=== PATIENT | female | born 1990 | race Caucasian/White ===

== ENCOUNTER 2016-10-02 10:15 | Outpatient (RCR) ==
--- NOTE | 2016-09-28 11:38 | RS.OPPTEV2 ---
Date of Note: 09/28/16 Visit #: 1 Date of Evaluation: 09/28/16 Payer Source: Medicaid Treatment Diagnosis: LBP, lumbar herniated disc History of Condition/Mechanism of Injury:: Patient reports having back pain for several years, since 2007. States pain has progressively gotten worse. Reports during and after the of her now three year old daughter, her pain has been much worse. Prior Level of Function.....Patient was independent with: ADL's, Self Care, Work /Vocation, Caregiving, Ambulation/Mobility, Community Integration/Access Functional Limitations: Sleep, ADL's, Reaching, Pushing, Pulling, Lifting, Carrying, Sitting, Standing, Bending, Ambulation Current Subjective/complaints:: Patient reports pain has progressed to the point that it is nearly constant in her low back. States she gets pain and tingling into the right leg when her back pain is elevated. States she also has bilateral hip pain, with more on the right . States she takes Ibuprofen, which takes the edge off. She has tried heat, ice, Icyhot, and has also tried some stretching that she learned from a family member who had therapy. 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 States she performs a lot of lifting, reaching, standing, walking, and bending. She tries to put one foot up at work when standing, to take some pressure off of her back. States her sleep is interrupted from pain most nights. She cannot tolerate any position for too long. States she has noticed some slight weakness in the right LE, mainly at the knee. Medical History Surgical History: Surgical History Comments:: left foot surgery Diagnostic Testing/Imaging:: Lumbar spine w/o contrast on 10/25/14: Summary: "Mild degenerative disc and facet changes with mild relative foraminal narrowing on the left L5-S1. " Hx Home Medications: Ambien, flexeril, Ritalin Patient's Goals: Her goal is to get some relief of back and LE pain. Pain Assessment - Pain Description Pain Location: low back, hips, right LE Current Pain Intensity: 3/10 Worst Pain Intensity: 8/10 Functional Outcome Measure Oswestry LBP: 50 - G Codes & Severity Modifier G Codes & Modifier: NA Source of G Code score: NA Observation - Observation Posture: Forward Head, Rounded Shoulders, Decreased Lumbar Lordosis Handedness: Right Gait - Gait Pattern General Gait Pattern Observation: No Deviations/Normal - ROM Lumbar Flexion: Hand reach to patellae (increased right LE pain) Sidebending to Left: Reach to Mid-thigh Sidebending to Right: Reach to Mid-thigh Lumbar Spine ROM Limitations: Pain Comments: Lumbar extension is WFL's without reports of increased pain. Bilateral LE AROM is WFL's. - Strength Trunk Lateral Flexion: 4 Good Trunk Rotation: 4 Good Comments: Right hip flexion 4/5 throughout. Right knee 4/5 Q & HS, Ankle 4+/5. Left hip 4+ to 5/5 throughout. Left knee and ankle 5/5. - Special Tests CLAUDIO Test: Negative Left, Negative Right SLR Test: Negative Left, Negative Right Seated Dural Stretch Test: Negative Left, Negative Right SI Joint Compression: Negative Palpation Comments:: Reports no tenderness with palpation throughout the paraspinals of the lumbar spine. Also reports no tenderness over either SI joint or into the gluteal muscles. Slight discomfort reported with central PA's along the lumbar spine, most at L3-L5 levels. Minimal muscle guarding along the lumbar paraspinals. Sensation - Sensation Right Lower Extremity: Intact/Normal Left Lower Extremity: Intact/Normal Additional Comments: Additional Comments: In supine, left LE is longer than the right. SLR on the left to 40-45 degrees, right to 35 degrees. Interventions - Exercise/Activities/Manual Therapy Exercises/Activities: Patient instructed in HS stretch and isometric hip flexion , both only on the right LE for now for HEP. Manual Therapy: NA HOME EXERCISE PROGRAM: HS stretch and isometric hip flexion, both only on the right LE - Charges Total Direct Minutes: 45 mins Total Treatment Time: 45 mins Procedures billed for this date of service:: EVAL LOW Assessment Assessment: Patient presents to therapy with a dignosis of low back pain with lumbar herniated disc. She reports back pain with prolonged walking or sitting. Sleep is interrupted from pain. States pain is and has been gradually worsening. She demonstrates limited lumbar ROM due to pain. Exhibits an imbalance in HS flexibility and LE strength. She will benefit from exercises to address flexibility and strength imbalances and progress to lumbar and pelvic stabilization to reduce her pain. She will also benefit from back safety education. Patient Education: Education of diagnosis, Body/Joint mechanics, Home Exercise Program, Home Safety, Activity Modification, Education of Plan of Care Rehab Potential: Good Short Term Goals Goal #1: Right SLR to 45 degrees. Goal to be met by: 10/12/16 Goal #2: Right hip flexion 4+/5. Goal to be met by: 10/12/16 Goal #3: Pt independent and compliant in basic HEP. Goal to be met by: 10/12/16 Goal #4: Right LE symptoms localized to low back. 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 HEP after D/C from therapy. Goal to be met by: 11/07/16 Goal #2: Score on Oswestry LBP improved to 26. Goal to be met by: 11/07/16 Goal #3: Pt able to perform work and home activities with minimal discomfort. Goal to be met by: 11/07/16 Goal #4: Pt to sleep 6 hours without interruption from back or LE pain. Goal to be met by: 11/07/16 Plan - Treatment to be Provided Procedures: Therapeutic Exercises, Therapeutic Activity, Manual Therapy, Patient Education Modalities: Electrical Stimulation, Ultrasound/Phonophoresis, Cryotherapy, Hot Packs - Treatment Plan Frequency: 3 X week Duration: 4 weeks ORDER # VISITS AND/OR THROUGH DATE: 11/07/16 - Treatment Code (1) Low back pain Qualifiers: Chronicity: unspecified Back pain laterality: unspecified Sciatica presence: unspecified whether sciatica present Qualified Description: Low back pain, unspecified back pain laterality, unspecified chronicity, with sciatica presence unspecified Qualifier Code(s): (M54.5) Low back pain (2) Lumbar herniated disc Comments: M51.26
--- NOTE | 2016-10-01 09:04 | RS.CXNS ---
Date of scheduled appointment: 10/01/16 Type: Cancel
--- NOTE | 2016-10-02 15:15 | RS.OPPTDN ---
Subjective Date of Note: 10/02/16 Visit #: 2 Date of Evaluation: 09/28/16 Payer Source: Medicaid Treatment Diagnosis: LBP, lumbar herniated disc Current Subjective/complaints:: Patient states she is not feeling very good today. States she is having pain in multiple places. Pain Assessment - Pain Description Pain Location: low back, hips, right LE Current Pain Intensity: 3/10 - Treatment Modality: Electrical Stim Unattended Parameters/Method Applied: 4 large pads set up to low back horizontally X 20 mins HVGS up to 140 peak volts. Patient Position: Supine - Heat/Cryotherapy Treatment: Hot Pack (with Estim) Interventions - Exercise/Activities/Manual Therapy Exercises/Activities: No exercises performed today. Advised to continue exercises of stretching HS and isometric hip flexion to the right LE. Manual Therapy: NA HOME EXERCISE PROGRAM: HS stretch and isometric hip flexion, both only on the right LE - Charges Total Direct Minutes: 5 mins Total Treatment Time: 25 mins Procedures billed for this date of service:: Hp, EStim Assessment: Patient tolerates Estim well. She will benefit from progress to exercises of stretching and stability to help decrease her pain. Patient demonstrates compliance with HEP?: Yes Short Term Goals Goal #1: Right SLR to 45 degrees. Goal to be met by: 10/12/16 Goal #2: Right hip flexion 4+/5. Goal to be met by: 10/12/16 Goal #3: Pt independent and compliant in basic HEP. Goal to be met by: 10/12/16 Goal #4: Right LE symptoms localized to low back. 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 HEP after D/C from therapy. Goal to be met by: 11/07/16 Goal #2: Score on Oswestry LBP improved to 26. Goal to be met by: 11/07/16 Goal #3: Pt able to perform work and home activities with minimal discomfort. Goal to be met by: 11/07/16 Goal #4: Pt to sleep 6 hours without interruption from back or LE pain. Goal to be met by: 11/07/16 Plan PLAN OF CARE EXPIRES ON:: 11/07/16 ORDER # VISITS AND/OR THROUGH DATE: 11/07/16 PLAN: Continue Plan of Care
--- NOTE | 2016-10-05 11:32 | RS.CXNS ---
Date of scheduled appointment: 10/05/16 Type: No Show
--- NOTE | 2016-10-07 10:07 | RS.CXNS ---
Date of scheduled appointment: 10/07/16 Type: No Show
[2016-10-08 15:24] VITALS: BMI 34.1
== END 2016-10-09 ==
PROVIDERS: ATTEND Physician Assistant
DX: M51.26 Other intervertebral disc displacement, lumbar region (principal)

== ENCOUNTER 2016-10-08 15:11 | Emergency (ER) ==
[2016-10-08 15:24] VITALS: BP 134/89; TEMP 98.6; BMI 34.1
[2016-10-08] MEDS ORDERED: SODIUM CHLORIDE 1,000 ML IV STA ×2 (15:55→18:50)
--- NOTE | 2016-10-08 15:55 | ED.PDOC ---
General ED Provider: Dr. ILYA CARTER JR Chief Complaint: Psychiatric Complaint Stated Complaint: rb-patient has been seeing mental health for approx. 1 month. states she had been harming herself and has had suicidal thoughts. patient is very tearful. states she has cut herself on her arms, neck, chest and abd. patient has a hard time breathing with her panic attacks. states she thinks about killing herself but does not have a plan. states she doesn't feel like she benefits anyone so what does it matter if she is here. states cuts are burning.patient very tearful and crying. patient has multiple superficial laceration to bilateral forearms and chest and abd., patient states she used a multi-tool to do it.[ End ]98.6 147 20 98% 134/89 01/18. Both shifts of mental health here; Cynthia kate, and Gosia Time Seen by Physician: 15:55 Mode of Arrival: Walk-In Information Source: Patient Exam Limitations: No limitations Primary Care Provider: SHIRLEY MENDOZA Nursing and Triage Documentation Reviewed and Agree: No Review of Systems - Review Of Systems Constitutional: Reports: Malaise Eyes: Reports: No symptoms Ears, Nose, Mouth, Throat: Reports: No symptoms Respiratory: Reports: No symptoms, Short of air (hyperventilatiing) Cardiac: Reports: No symptoms, Chest pain (from abrasions, anxious palpitations) GI: Reports: No symptoms, Abdominal pain (from abrasions) : Reports: No symptoms Musculoskeletal: Reports: No symptoms Skin: Reports: Lesions Neurological: Reports: Anxiety, Depressed, Emotional problems Endocrine: Reports: No symptoms Hematologic/Lymphatic: Reports: No symptoms All Other Systems: Other Past Medical History - Past Medical History Endocrine: Reports: None Cardiovascular: Reports: None Respiratory: Reports: None Hematological: Reports: None Gastrointestinal: Reports: None Genitourinary: Reports: None Neuro/Psych: Reports: Anxiety, Depression, Bipolar Disorder, Other (suicide attempt, ADD) Musculoskeletal: Reports: None Cancer: Reports: None Last Menstrual Period: 3 days ago - Surgical History General Surgical History: Reports: , Orthopedic (left foot surgery ), Other (d and c exploratory lap ) - Family History Family History: Reports: Unknown - Social History Smoking Status: Current some day smoker, Light tobacco smoker, Vaping Hx Substance Use: No Alcohol Screening: Occasionally Physical Exam - Physical Exam Appearance: Well-appearing Pain Distress: Moderate Eyes: NOHELIA, EOMI, Conjunctiva clear ENT: Ears normal, Nose normal, Oropharynx normal Neck: Supple Respiratory: Airway patent, Breath sounds clear, Breath sounds equal, Respirations nonlabored Cardiovascular: RRR, Pulses normal, No rub, No murmur, Tachycardia GI/: Soft, No masses, Bowel sounds normal, No Organomegaly, Tender (due to multiple abrasions) Musculoskeletal: Normal strength, ROM intact, No edema, No calf tenderness Skin: Warm, Dry, Normal color (abrasuions both forearms upper chest abdomen all tender no evidence of infection) Neurological: Sensation intact, Motor intact, Reflexes intact, Cranial nerves intact, Alert Psychiatric: Anxious, Depressed Interpretation - Radiology Interpretation Radiology Interpretation By: Radiologist Radiology Results: Negative Exam Interpreted: CXR - EKG Interpretation Time of EKG #1: 16:15 Rate: Tachy Rhythm: Sinus (159) ST Segment: Other Critical Care Note - Critical Care Note Total Time (mins): 30 Course - Course Hematology/Chemistry: 10/08/16 16:09 10/08/16 16:09 Orders, Labs, Meds: Lab Review 10/08/16 10/08/16 16:09 16:22 WBC 10.27 H RBC 4.52 Hgb 13.0 Hct 38.1 MCV 84.3 MCH 28.8 MCHC 34.1 RDW Coeff of Kelechi 13.3 Plt Count 316 Immature Gran % (Auto) 0.3 Neut % (Auto) 67.7 Lymph % (Auto) 19.5 Mcintosh % (Auto) 10.2 H Eos % (Auto) 1.9 Baso % (Auto) 0.4 Immature Gran # (Auto) 0.0 Neut # 7.0 H Lymph # 2.0 Mcintosh # 1.1 Eos # 0.2 Baso # 0.0 D-Dimer (Manual) 418.94 Sodium 140 Potassium 3.7 Chloride 108 H Carbon Dioxide 24 Anion Gap 11.7 BUN 9 Creatinine 0.73 Estimated GFR (MDRD) 96.00 BUN/Creatinine Ratio 12.32 Glucose 103 Calcium 9.7 Total Bilirubin 0.21 AST 17 ALT 13 Alkaline Phosphatase 101 H Total Protein 7.9 Albumin 4.1 Globulin 3.8 Albumin/Globulin Ratio 1.08 TSH 1.204 Urine Color Yellow Urine Clarity Cloudy Urine pH 5.5 Ur Specific [place] 1.025 Urine Protein Negative Urine Glucose (UA) Negative Urine Ketones Negative Urine Blood Trace-lysed Urine Nitrite Negative Urine Bilirubin Negative Urine Urobilinogen 0.2 Ur Leukocyte Esterase 1+ Urine Microscopic RBC 2-5 Urine Microscopic WBC 10-20 Ur Squamous Epith Cells 2-5 Amorphous Sediment Trace Urine Bacteria 1+ Urine Mucus 1+ Urine Test Negative Salicylate Level mg/dL < 5.0 Urine Opiates Screen Negative Ur Oxycodone Screen Negative Urine Methadone Screen Negative Ur Propoxyphene Screen Negative Acetaminophen < 3 L Ur Barbiturates Screen Negative U Tricyclic Antidepress Negative Ur Phencyclidine Scrn Negative Ur Amphetamine Screen Negative U Methamphetamines Scrn Negative U Benzodiazepines Scrn Positive Urine Cocaine Screen Negative U Cannabinoids Screen Negative Plasma/Serum Alcohol < 10.0 Orders Category Date Time Status EKG-(ED ONLY) Stat CARDIO 10/08/16 15:55 Completed EKG-(ED ONLY) Stat CARDIO 10/08/16 18:45 Completed TRANSFER TO OUTSIDE FACILITY .TO OTHER OUTSIDE FACILITY CARE 10/08/16 21:42 Active (SEE ORDER DETAILS) WRITE TRANSFER/SBAR NOTE ONCE CARE 10/08/16 21:42 Active DISCHARGE ASSESSMENT ONCE DISCHARGE 10/08/16 21:42 Active WRITE DISCHARGE NOTE ONCE DISCHARGE 10/08/16 21:42 Active Consult Mental Health [ED MENTAL HEALTH CONSULT] .ONCE EMERGENCY 10/08/16 16: 08 Active 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 ONCE EMERGENCY 10/08/16 15:55 Active ED IV/MEDIPORT/POWERPORT .ONCE EMERGENCY 10/08/16 15:55 Inactive IV [ED IV/MEDIPORT/POWERPORT] .ONCE EMERGENCY 10/08/16 18:30 Active ACETAMINOPHEN Stat LAB 10/08/16 16:09 Completed BLOOD ALCOHOL Stat LAB 10/08/16 16:09 Completed CBC W/ AUTO DIFF Stat LAB 10/08/16 16:09 Completed COMPREHENSIVE METABOLIC PANEL Stat LAB 10/08/16 16:09 Completed D-DIMER Stat LAB 10/08/16 16:09 Completed DRUG SCREEN, URINE, RAPID Stat LAB 10/08/16 16:22 Completed TEST URINE [URINE ] Stat LAB 10/08/16 16:22 Completed SALICYLATE Stat LAB 10/08/16 16:09 Completed THYROID STIMULATING HORMONE Stat LAB 10/08/16 16:09 Completed URINALYSIS C & S IF INDICATED Stat LAB 10/08/16 16:22 Completed URINE CULTURE Stat LAB 10/08/16 16:40 Completed 0.9 % Sodium Chloride [Saline Flush] MEDS 10/08/16 15:55 Discontinued 1 syr IVF PRN PRN 0.9 % Sodium Chloride [Saline Flush] MEDS 10/08/16 18:30 Discontinued 1 syr IVF PRN PRN Bacitracin/Polymyxin B Sulfate [Polysporin 0.9 gm MEDS 10/08/16 18:45 Discontinued Packet] 1 each TP ONCE STA Clonazepam [Klonopin] MEDS 10/08/16 17:15 Discontinued 0.5 mg PO ONCE STA Lorazepam Inj [Ativan] MEDS 10/08/16 18:47 Discontinued 1 mg IVP ONCE STA Lorazepam Inj [Ativan] MEDS 10/08/16 20:26 Discontinued 2 mg IVP ONCE STA Nitrofurantoin Monohyd/M-Cryst [Macrobid] MEDS 10/08/16 16:54 Discontinued 100 mg PO ONCE STA Sodium Chloride 0.9% [Sodium Chloride] 1,000 ml MEDS 10/08/16 18:50 Discontinued IV BOLUS CHEST, 2 VIEWS PA & LAT Stat RADS 10/08/16 16:09 Completed Medications Discontinued Medications Generic Name Dose Route Start Last Admin Trade Name Freq PRN Reason Stop Dose Admin Bacitracin/Polymyxin B Sulfate 1 each 10/08/16 18:45 10/08/16 18:59 Polysporin 0.9 Gm Packet TP 10/08/16 18:46 1 each ONCE STA Administration Clonazepam 0.5 mg 10/08/16 17:15 10/08/16 17:26 Klonopin PO 10/08/16 17:16 0.5 mg ONCE STA Administration Sodium Chloride 1,000 mls @ 1,000 mls/hr 10/08/16 18:50 10/08/16 18:59 Sodium Chloride IV 10/08/16 19:49 1,000 mls/hr BOLUS STA Administration Lorazepam 1 mg 10/08/16 18:47 10/08/16 18:55 Ativan IVP 10/08/16 18:48 1 mg ONCE STA Administration Lorazepam 2 mg 10/08/16 20:26 10/08/16 20:34 Ativan IVP 10/08/16 20:27 2 mg ONCE STA Administration Nitrofurantoin Macrocrystals 100 mg 10/08/16 16:54 03/30/17 17:26 Macrobid PO 10/08/16 16:55 100 mg ONCE STA Administration Sodium Chloride 1 syr 10/08/16 15:55 10/08/16 20:39 Saline Flush IVF 1 syr PRN PRN Administration To flush IV Sodium Chloride 1 syr 10/08/16 18:30 Saline Flush IVF PRN PRN To flush IV Vital Signs: Temp Pulse Resp BP Pulse Ox 10/08/16 15:17 98.6 F 147 H 20 134/89 98 Departure - Departure Time of Disposition: 21:55 Disposition: TSF TO PSYCH HOSP/UNIT Discharge Problem: Anxiety, Suicidal ideation Instructions: Suicide Prevention for Adults (ED) Condition: Stable Pt referred to PMD for follow-up: No (psych) Allergies/Adverse Reactions: Allergies No Known Allergies Allergy (Unverified 10/08/16 15:24) Home Medications: Ambulatory Orders Methylphenidate HCl [Ritalin] 10 mg PO TID PRN 10/08/16 Zolpidem Tartrate [Ambien] 10 mg PO BEDTIME 10/08/16
[2016-10-08 16:14] LABS: BASOPHILS % (AUTO) 0.4 % (0.0-3.0); EOSINOPHILS # (AUTO) 0.2 K/ul (0.0-0.7); EOSINOPHILS % (AUTO) 1.9 % (0.0-7.0); HEMATOCRIT 38.1 % (37.0-47.0); IMMATURE GRANULOCYTE % (AUTO) 0.3 % (0.0-5.0); LYMPHOCYTES % (AUTO) 19.5 (10.0-50.0); MEAN CORPUSCULAR HEMOGLOBIN 28.8 pg (27.0-31.0); MEAN CORPUSCULAR HGB CONC 34.1 (31.8-35.4); MEAN CORPUSCULAR VOLUME 84.3 fl (81.0-99.0); MONOCYTES # (AUTO) 1.1 K/uL (0.4-2.0); MONOCYTES % (AUTO) 10.2 (0-10); NEUTROPHILS % (AUTO) 67.7; PLATELET COUNT 316 10^3/uL (140-440); RED BLOOD COUNT 4.52 10^6/ul (4.20-5.40); WHITE BLOOD COUNT 10.27 K/ul (4.6-10.2)
[2016-10-08 16:35] LABS: BILIRUBIN,URINE Negative (NEGATIVE); KETONES,URINE Negative (NEGATIVE); LEUKOCYTE ESTERASE ,URINE 1+ (NEGATIVE); NITRITE,URINE Negative (NEGATIVE); PH,URINE 5.5 (5-9); PROTEIN,URINE Negative (NEGATIVE); URINE, BLOOD Trace-lysed (NEGATIVE)
[2016-10-08 16:36] LABS: URINE PREGNANCY INTERNAL QC INTERNAL QC VALID
[2016-10-08 16:39] LABS: ADD URINE MICROSCOPIC YES
[2016-10-08 16:40] LABS: BACTERIA,URINE 1+ (NOT PRESENT)
[2016-10-08 16:44] LABS: COCAIN SCREEN,URINE NEGATIVE (NEGATIVE)
[2016-10-08] MEDS ORDERED: MACROBID PO STA (16:54)
[2016-10-08 16:59] LABS: ACETAMINOPHEN < 3 ug/ml (10-30); ALANINE AMINOTRANSFERASE 13 U/L (12-78); ALBUMIN 4.1 g/dL (3.4-5.0); ALBUMIN/GLOBULIN RATIO 1.08; ALKALINE PHOSPHATASE 101 U/L (42-98); ANION GAP 11.7; ASPARTATE AMINO TRANSFERASE 17 U/L (15-37); BILIRUBIN,TOTAL 0.21 mg/dL (0.00-1.20); BLOOD UREA NITROGEN 9 mg/dL (7-18); BUN/CREATININE RATIO 12.32; CALCIUM 9.7 mg/dL (8.2-10.2); CARBON DIOXIDE 24 mmol/L (21-32); CHLORIDE 108 mmol/L (98-107); CREATININE 0.73 mg/dL (0.60-1.30); GLUCOSE 103 mg/dL (70-110); POTASSIUM 3.7 mmol/L (3.5-5.10); SALICYLATE < 5.0 mg/dL (2.8-20.0); SODIUM 140 mmol/L (136-145); TOTAL PROTEIN 7.9 g/dL (6.4-8.2)
--- NOTE | 2016-10-08 16:59 | DI ---
Examination: Two radiographic images of the chest. Comparison: None available. Reason for study: Short of air. FINDINGS: No pneumothorax, pleural effusion, or focal consolidation. The cardiac silhouette is not enlarged. The imaged osseous structures are atraumatic. Impression: No acute cardiopulmonary findings.
[2016-10-08] MEDS ORDERED: KLONOPIN PO STA (17:15)
[2016-10-08] MEDS ORDERED: POLYSPORIN 0.9 GM PACKET TP STA (18:45)
[2016-10-08] MEDS ORDERED: ATIVAN IVP STA ×2 (18:47→20:26)
== END 2016-10-08 21:55 ==
LOC: ED 15:11
DX: R45.851 Suicidal ideations (principal); F41.9 Anxiety disorder, unspecified; F17.210 Nicotine dependence, cigarettes, uncomplicated
CPT/HCPCS: 36415; 80053; 80306; 80307; 81001; 81025; 84443; 85025; 85379; 87086; 93005; 93010; 96361; 96374; 96376; 99285

== ENCOUNTER 2016-10-08 22:08 | Outpatient (CLI) ==
[2016-10-08 15:24] VITALS: BMI 34.1
== END 2016-10-08 22:09 | disposition home or self-care (01) ==
LOC: AMBL 22:08
PROVIDERS: ATTEND Family Medicine
DX: F99 Mental disorder, not otherwise specified (principal); S41.112A Laceration without foreign body of left upper arm, initial encounter; S41.111A Laceration without foreign body of right upper arm, initial encounter; S31.119A Laceration without foreign body of abdominal wall, unspecified quadrant without penetration into peritoneal cavity, initial encounter; S21.119A Laceration without foreign body of unspecified front wall of thorax without penetration into thoracic cavity, initial encounter; W45.8XXA Other foreign body or object entering through skin, initial encounter; R41.0 Disorientation, unspecified

== ENCOUNTER 2016-10-19 18:01 | Outpatient (CLI) ==
[2016-10-19 19:23] LABS: ALBUMIN 3.8 g/dL (3.4-5.0); ALBUMIN/GLOBULIN RATIO 1.12; ANION GAP 9.7; BILIRUBIN,TOTAL 0.26 mg/dL (0.00-1.20); BUN/CREATININE RATIO 8.86; CALCIUM 9.1 mg/dL (8.2-10.2); CHOL/HDL RATIO 2.4 (4.5-5.5); CREATININE 0.79 mg/dL (0.60-1.30); POTASSIUM 3.7 mmol/L (3.5-5.10); TOTAL PROTEIN 7.2 g/dL (6.4-8.2)
== END 2016-10-19 18:02 | disposition home or self-care (01) ==
LOC: LAB 18:01
PROVIDERS: ATTEND Physician Assistant
DX: E22.1 Hyperprolactinemia (principal); F41.9 Anxiety disorder, unspecified
CPT/HCPCS: 36415; 80053; 80061; 84146; 84439; 84443

== ENCOUNTER 2016-11-05 15:21 | Outpatient (CLI) ==
--- NOTE | 2016-11-05 15:58 | CT ---
EXAM: CT of the abdomen and pelvis without contrast History: Right flank pain. Technique: Multiplanar CT images through the abdomen pelvis were obtained without the administratio n of IV contrast Findings: Subsegmental atelectasis seen within the right middle lobe. No acute osseous abnormaliti es. No discrete gallstones identified by CT. No focal liver or splenic lesions. Moderate colonic stool . No peripancreatic inflammation. Adrenal glands are unremarkable. Right perinephric inflammation . No right hydronephrosis. No ureteral calculi. Bladder is not well distended but the wall is not focally thickened. Tampon seen in place within th e vaginal/cervical region. No perirectal inflammation. Impression: Right perinephric inflammation, suspicious for pyelonephritis. A recently passed stone could give a similar appearance.
== END 2016-11-05 15:22 | disposition home or self-care (01) ==
LOC: RAD 15:21
PROVIDERS: ATTEND Nurse Practitioner Family
DX: R10.9 Unspecified abdominal pain (principal); R50.9 Fever, unspecified; J02.9 Acute pharyngitis, unspecified; R05 Cough
CPT/HCPCS: 74176; 87651; 87804; 87880

== ENCOUNTER 2016-11-05 16:09 | Outpatient (CLI) ==
[2016-11-05 18:24] LABS: FLU INTERNAL QC INTERNAL QC VALID; RAPID FLU A NEGATIVE (NEGATIVE); RAPID FLU B NEGATIVE (NEGATIVE)
== END 2016-11-05 16:10 | disposition home or self-care (01) ==
LOC: LAB 16:09
PROVIDERS: ATTEND Nurse Practitioner Family
DX: J02.9 Acute pharyngitis, unspecified (principal); R05 Cough; R50.9 Fever, unspecified
CPT/HCPCS: 87804; 87880